=== PATIENT | female | born 1995 | race Caucasian/White ===

== ENCOUNTER 2020-06-18 07:45 | Emergency (ER) | payer MEDICAID ==
[~2020-06-18] VITALS: Ht 172.7 cm; Wt 113.8 kg
[~2020-06-18 07:45] MED LIST: CLIN300C8 PO; PREN1TAB14 PO
[2020-06-18 07:51] VITALS: BP 126/78
== END 2020-06-18 08:30 | disposition home or self-care (01) ==
LOC: ED 08:24
DX: K04.7 Periapical abscess without sinus (principal); K02.9 Dental caries, unspecified; K08.89 Other specified disorders of teeth and supporting structures; F17.210 Nicotine dependence, cigarettes, uncomplicated
CPT/HCPCS: 94640; 99283; 99406